=== PATIENT | male | born 1955 | race Hispanic/Latino ===

== ENCOUNTER 2018-11-30 12:14 | Day surgery (SDC) | payer OTHER ==
[2018-11-26 10:38] VITALS: BMI 23.1
[2018-11-30 13:09] LABS: BASO # 0.02 K/mm3 (0.0-2.0); BASO % 0.3 % (0.0-3.0); EOS % 0.2 % (1.5-5.0); HEMOGLOBIN 11.5 g/dL (14.0-18.0); LYMPH # 1.2 (1.2-3.4); MEAN CORPUSCULAR HGB CONC 33.6 g/dl (31.0-37.0); MEAN PLATELET VOLUME 9.2 fl (7.0-11.0); MONO # 0.4 (0.1-0.6); MONO % 6.3 % (1.0-6.0); RBC 3.49 10^6/uL (3.5-6.1); RED CELL DISTRIBUTION WIDTH 12.8 % (11.5-14.5); WHITE BLOOD COUNT 5.9 10^3/uL (4.5-11.0)
[2018-11-30 13:16] LABS: BLOOD UREA NITROGEN 27 mg/dL (7-21); CALCIUM 9.4 mg/dL (8.4-10.5); GFR NON-AFRICAN AMERICAN 51; INR 0.91; PARTIAL THROMBOPLASTIN TIME 29.7 Seconds (26.9-38.3); PROTHROMBIN TIME 10.3 SECONDS (9.4-12.5)
[2018-11-30] MEDS ORDERED: Lidocaine 2% Inj (20ml) ONE (13:35)
[2018-11-30] MEDS ORDERED: Iodixanol 320 MG/ML 100 ML BOTTLE IV ONE (13:35)
[2018-11-30] MEDS ORDERED: Midazolam 2 MG/2 ML VIAL ONE ×2 (14:24→14:38)
[2018-11-30] MEDS ORDERED: DiphenhydrAMINE 50 mg/ml Inj ONE (15:02)
[2018-11-30] MEDS ORDERED: Oxycodone/Acetaminophen 5/325 mg Tab PO PRN (15:22)
[2018-11-30] MEDS ORDERED: Sodium Chloride 0.45% 1,000 ML IV SCH (15:30)
--- NOTE | 2018-11-30 19:21 | VASCULAR ---
PROCEDURE: 1. L1 kyphoplasty. 2. L1 vertebral body biopsy. HISTORY: Severe, refractory back pain. Unresponsive to bed rest and analgesics. Acute L1 compression fracture on MRI. PHYSICIAN(S): Vick Galvez MD. TECHNIQUE: he relative risks and indications of the procedure were explained to the patient and informed written consent obtained. The patient was placed prone on the arteriography table and the thoracolumbar spine prepped and draped in the usual sterile fashion. Conscious sedation and monitoring were provided throughout the procedure by a nurse. The L1 vertebral body was carefully localized with fluoroscopy. The skin and soft tissues were anesthetized with 1% Xylocaine. Under direct fluoroscopic guidance, bilateral transpedicular bone needles were placed into the posterior aspect of the L1 vertebral body. Through the right needle, a biopsy of the [id number] body was performed. The specimen was sent to histology. A curettage was used bilaterally Next bilateral 15mm bone balloons were placed in the superior and anterior portion of the L1 vertebral body. They were inflated to approximately 3 cc apiece with dilute contrast. The balloons were removed and 6.0 of barium-impregnated PMMA cement instilled into the L1 vertebral body. No extravasation was seen. The bone needles were removed. The patient tolerated the procedure well. IMPRESSION: 1. Fluoroscopically-guided L1 kyphoplasty. 2. Fluoroscopic L1 vertebral body biopsy.
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
[2018-12-01 07:25] LABS: BLOOD UREA NITROGEN 21 mg/dL (7-21); CALCIUM 9.2 mg/dL (8.4-10.5); GFR NON-AFRICAN AMERICAN > 60
[2018-12-01 07:35] LABS: HEMOGLOBIN 11.3 g/dL (14.0-18.0); MEAN CELL VOLUME 97.9 fl (80.0-105.0); MEAN CORPUSCULAR HEMOGLOBIN 33.2 pg (25.0-35.0); MEAN CORPUSCULAR HGB CONC 33.9 g/dl (31.0-37.0); MEAN PLATELET VOLUME 9.9 fl (7.0-11.0); RBC 3.4 10^6/uL (3.5-6.1); RED CELL DISTRIBUTION WIDTH 12.6 % (11.5-14.5); WHITE BLOOD COUNT 4.5 10^3/uL (4.5-11.0)
[2018-12-01 08:01] VITALS: BP 139/75; PULSE 69; RESP 20; TEMP 98.8; O2SAT 98
--- NOTE | 2018-12-02 02:20 | DS ---
HISTORY OF PRESENT ILLNESS: He came in with a compression fracture. He had kyphoplasty. He is doing a lot better. He just does not walk, physical therapy to walk him. We will discharge him today, he will go home on his regular medications. He started to feel 80% to 90% better he tells me. PHYSICAL EXAMINATION: VITAL SIGNS: A 98.8 temp, 69 pulse, 139/75 blood pressure, 20 respiratory rate and 98% O2 sat on room air. HEENT: Head is atraumatic and normocephalic. HEART: Regular rate. LUNGS: Decreased breath sounds. ABDOMEN: Soft. EXTREMITIES: No edema. LABORATORY DATA: he has a 4.5 white count, 11.3 hemoglobin, 32.3 hematocrit and with 243 platelets. Sodium 138, potassium 4.4, BUN 21, creatinine 1.2, GFR is greater than 60, sugar is 97 and calcium 9.2. I am going to see him in the office in about a week. He will continue to get the medications. He has been discharged status post kyphoplasty for compression fracture. Nando aHll DO MTDD
== END 2018-12-01 14:33 | disposition home or self-care (01) ==
LOC: SDSVAS 12:14 → 5RSO 16:45 → SDSVAS 12-01 14:33
PROVIDERS: ATTEND Radiology Vascular & Interventional Radiology
DX: M48.56XA Collapsed vertebra, not elsewhere classified, lumbar region, initial encounter for fracture (principal); I10 Essential (primary) hypertension; E78.00 Pure hypercholesterolemia, unspecified; Z86.711 Personal history of pulmonary embolism; Z87.891 Personal history of nicotine dependence; Z79.01 Long term (current) use of anticoagulants; Z90.5 Acquired absence of kidney
CPT/HCPCS: 22514; 36415 ×2; 80048 ×2; 85025; 85027; 85610; 85730; 88305; 88311; 97161; 99152; 99153; C1713; G8978; G8979; J1200; J1644; J2250; J2405; J3010; J7030; Q9967